=== PATIENT | male | born 1990 | race Two or more races ===

== ENCOUNTER 2025-04-16 16:01 | Emergency (ER) | payer SELFPAY ==
[~2025-04-16] VITALS: Ht 172.7 cm; Wt 95.5 kg
--- NOTE | 2025-04-16 16:04 | Physician Documentation ---
History of Present Illness ~ Stated Complaint: SOB Time Seen by MD: 16:03 HPI 34-year-old male presents to the ED after developing increased shortness a breath while hiking today at [facility]. States he is otherwise healthy. He reports "I think I am either having a heart attack or a stroke."Only medication he takes is testosterone replacement therapy. States his heart has been checked in his labs are normally fine Denies any nausea or chest pain. Appears to be hyperventilating during initial interview Day of Onset: Apr 16, 2025 Medication Reconciliation Allergies: Coded Allergies: No Known Allergies (Unverified , 04/16/25) Scheduled Hydroxyzine Hcl* (Atarax*), 1 TAB PO Q12H Review of Systems All Other Systems at this time: Reviewed and Negative ROS As stated above in the HPI, otherwise all systems are reviewed and negative. Physical Exam Physical Exam General: Alert, no apparent distress. HEENT: PERRL, EOMI, no injection, moist mucous membranes. Neck: Full range of motion. Respiratory: Lungs clear, no respiratory distress. Chest: No accessory muscle use. Cardiovascular: Regular rate and rhythm, no murmurs. Gastrointestinal: Soft, nontender, nondistended. Bowels sounds present. Extremities: Normal range of motion, no deformity. Neurologic: Oriented x4. Psychiatric: Normal mood and affect. Skin: Normal color, warm and dry. No edema, no ecchymosis. Progress Results/Orders Results/Orders Orders - HI JOYCE FISHER WEIR Chest,Single View (04/16/25 16:04) Monitor (04/16/25 16:04) Saline Lock (04/16/25 16:04) Oxygen (04/16/25 16:04) Electrocardiogram (04/16/25 16:04) Completed Orders - HI JOYCE FISHER WEIR Chest,Single View (04/16/25 16:04) Cbc/Diff (04/16/25 16:04) BMP (04/16/25 16:04) PBNP (04/16/25 16:04) Hs Troponin I W Calculations (04/16/25 16:04) Diazepam Inj (Valium Inj) (04/16/25 16:05) Potassium Cl Sr Tablet (K-Dur Tablet) (04/16/25 16:42) Medications Received in ER Medications (Trade) Dose Ordered Sig/Kyle Route PRN Reason Start Time Stop Time Status Last Admin Dose Admin (Valium inj) 10 mg ONCE ONCE IV 04/16/25 16:05 04/16/25 16:12 DC 04/16/25 16:26 10 MG (K-DUR tablet) 40 meq ONCE STAT PO 04/16/25 16:42 04/16/25 16:43 DC 04/16/25 16:51 40 MEQ Vital Signs 04/16/25 04/16/25 04/16/25 04/16/25 16:03 16:22 16:26 16:53 Temp 98.3 98.8 Pulse 110 86 Resp 36 18 18 16 B/P (MAP) 147/94 130/83 Pulse Ox 100 96 O2 Flow Rate 0 Laboratory Tests Test 04/16/25 16:08 White Blood Count 11.2 H Red Blood Count 5.23 Hemoglobin 16.2 Hematocrit 48.3 Mean Corpuscular Volume 92.4 Mean Corpuscular Hemoglobin 31.1 H Mean Corpuscular Hemoglobin Concent 33.6 Red Cell Distribution Width 14.2 Platelet Count 329 Mean Platelet Volume 8.0 Neutrophils (%) (Auto) 54.6 Lymphocytes (%) (Auto) 36.1 Monocytes (%) (Auto) 8.3 Eosinophils (%) (Auto) 0.6 Basophils (%) (Auto) 0.4 Neutrophils # (Auto) 6.1 Lymphocytes # (Auto) 4.0 Monocytes # (Auto) 0.9 Eosinophils # (Auto) 0.1 Basophils # (Auto) 0.0 CBC Comment Sodium Level 139 Potassium Level 3.2 L Chloride Level 100 Carbon Dioxide Level 20.2 L Anion Gap 19 H Blood Urea Nitrogen 12 Creatinine 1.11 H Estimated GFR/1.73 m2 76 BUN/Creatinine Ratio 10.8 Glucose Level 129 H Glucometer 117 H Calcium Level 9.7 Troponin I High Sensitivity 7 Pro-B-Type Natriuretic Peptide < 30 Albumin 4.6 Chemistry Comments Medical Decision Making Findings During my re-evaluation of the patient he reported taking TRT, HC G and estrogen blockers secondary to reported depression. After receiving Valium he reported improved symptoms in report being back to his normal baseline. Lastly he also added that in the last week he has had a stressful situation where he was spoken negatively about on social media which he has been having difficulty coping with. With these findings I suspect that this was a panic attack secondary to stress. His laboratory values clinically correlate with the this as there was no signs of cardiac events at this time Differential Dx:Considerations: Include: anxiety, asthma, bronchitis, cardiogenic shock, CHF, COPD, dysrhythmia, hypertension, accelerated, hypertension, essential, hypertension, malignant, hyperventilation, hyponatremia, myocardial infarction, panic attack, pneumonia, pneumonitis, pneumothorax, PSVT, pulmonary embolism, respiratory distress, respiratory failure, sinusitis, upper resp. infection, other Departure Disposition: HOME / SELF CARE / HOMELESS Impression: Primary Impression: Panic attack Condition: Improved Discharge Instructions: Panic Attack, [id number] Referrals: NO PRIMARY CARE PROVIDER (PCP) Prescriptions Hydroxyzine Hcl* (Atarax*) 25 Mg Tablet 1 TAB PO Q12H for anxiety for 30 Days, #60 TAB Prov: HI JOYCE NP 04/16/25 Education Educated: Patient Educated regarding: diagnosis Signature Scribe Signature: g Attestation: Scribed for Hi Joyce Board Finisher by Hi Mejia NP . 04/16/25 22:08 HI JOYCE NP Apr 16, 2025 16:04
[2025-04-16 16:16] LABS: MEAN PLATELET VOLUME 8.0 FL (7.4-10.4); RED CELL DISTRIBUTION WIDTH 14.2 % (11.5-14.5)
--- NOTE | 2025-04-16 16:22 | RADIOLOGY REPORT ---
CHEST RADIOGRAPH Indication: CP Technique: Single frontal view of the chest was obtained COMPARISON: None FINDINGS: Lines and Tubes: None Lungs: Clear Pleura: No effusion. No pneumothorax. Cardiomediastinal contours: Unremarkable Bones: Unremarkable IMPRESSION: No acute disease.
[2025-04-16] MEDS: diazepam inj 5 MG/ML inj. IV ONE (16:26)
[2025-04-16 16:36] LABS: CREATININE 1.11 MG/DL (0.60-1.10); TOTAL CARBON DIOXIDE 20.2 MMOL/L (24-32); eCRCL 92 ML/MIN; eGFR 76 ML/MIN
[2025-04-16 16:48] LABS: PRO BRAIN NATRIURETIC PEPTIDE < 30 PG/ML (0-125)
[2025-04-16] MEDS ORDERED: HYDR-3686 PO (16:50)
[2025-04-16] MEDS: potassium Cl 20 mEq SR tablet PO STA (16:51)
[2025-04-16 16:53] VITALS: BP 130/83; PULSE 86; RESP 16; TEMP 98.8; O2SAT 96
--- NOTE | 2025-04-17 06:31 | ELECTROCARDIOGRAPH REPORT ---
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 Arnaldo Woodall Measurements Intervals Scalf Rate: 112 P: 62 DE: 157 QRS: 46 QRSD: 94 T: 56 QT: 319 QTc: 436 Interpretive Statements Sinus tachycardia Electronically Signed On 04-17-2025 20:30:[address] Arnaldo Woodall Please click the below link to view image of tracing.
== END 2025-04-16 17:01 | disposition home or self-care (01) ==
LOC: ER 16:02
DX: F41.0 Panic disorder [episodic paroxysmal anxiety] (principal); I63.9 Cerebral infarction, unspecified; R06.02 Shortness of breath; Z79.899 Other long term (current) drug therapy
CPT/HCPCS: 36415; 71045; 80048; 82948; 83880; 84484; 85025; 93005; 96374; 99285; J3360